=== PATIENT | male | born 1945 | race Caucasian/White ===

== ENCOUNTER 2017-03-04 09:44 | Day surgery (SDC) | payer MEDICARE ==
[~2017-03-04] VITALS: Ht 177.8 cm; Wt 112.4 kg
[2017-03-04] VITALS (21 sets, daily range): BP systolic 81–200; BP diastolic 50–124
[~2017-03-04 09:44] MED LIST: ASPI-974 PO; Metoprolol ER PO; ROSU10TA PO
[2017-03-04] MEDS ORDERED: LORazepam 0.5 MG tablet PO PRN (10:30)
[2017-03-04] MEDS ORDERED: diphenhydrAMINE 25mg capsule PO PRN (10:30)
[2017-03-04] MEDS ORDERED: normal saline 1000ml 1,000 ML IV SCH (10:30)
[2017-03-04] MEDS ORDERED: nitroGLYCERIN 0.4mg SUBLingual tab SL PRN (10:30)
[2017-03-04 10:47] LABS: BASOPHILS % (AUTO) 0.4 % (0-1); EOSINOPHILS # (AUTO) 0.1 X10'3 (0-0.9); EOSINOPHILS % (AUTO) 1.8 % (0-6); HEMATOCRIT 43.8 % (42.0-52.0); HEMOGLOBIN 15.1 g/dl (14.0-17.9); LYMPHOCYTES # (AUTO) 1.1 X10'3 (1.1-4.8); LYMPHOCYTES % (AUTO) 18.3 % (21-51); MEAN CORPUSCULAR HEMOGLOBIN 32.6 PG (27.0-31.0); MEAN CORPUSCULAR HGB CONC 34.5 % (33.0-36.5); MEAN CORPUSCULAR VOLUME 94.6 FL (78-98); MEAN PLATELET VOLUME 7.5 FL (7.4-10.4); MONOCYTES # (AUTO) 0.5 X10'3 (0-0.9); MONOCYTES % (AUTO) 8.7 % (2-12); NEUTROPHILS # (AUTO) 4.3 X10'3 (1.8-7.7); NEUTROPHILS % (AUTO) 70.8 % (42-75); PLATELET COUNT 155 X10'3 (140-440); RED BLOOD COUNT 4.63 X10'6 (4.70-6.10); RED CELL DISTRIBUTION WIDTH 13.6 % (11.5-14.5); WHITE BLOOD COUNT 6.1 X10'3 (4.5-11.0)
[2017-03-04] MEDS ORDERED: LIDOcaine 1%/PF (10mg/ml) 5ml vial ONE (10:48)
[2017-03-04] MEDS ORDERED: iohexol 350 MG/1 ML 200ml bottle ONE (10:49)
[2017-03-04 10:57] LABS: ALBUMIN 3.3 G/DL (3.4-5.0); ANION GAP 9 (8-16); BLOOD UREA NITROGEN 13 MG/DL (7-18); BUN/CREATININE RATIO 16.9 (5.4-32.0); CALCIUM 8.7 MG/DL (8.5-10.1); CHLORIDE 105 MMOL/L (99-107); CREATININE 0.77 MG/DL (0.60-1.10); GLUCOSE 109 MG/DL (70-104); POTASSIUM 3.9 MMOL/L (3.5-5.1); SODIUM 140 MMOL/L (135-145); TOTAL CARBON DIOXIDE 25.8 MMOL/L (24-32); eGFR > 90 ML/MIN
[2017-03-04 10:58] LABS: PARTIAL THROMBOPLASTIN TIME 27 SECONDS (22-32); PROTHROMBIN TIME 10.3 SECONDS (9.0-12.0)
[2017-03-04] MEDS ORDERED: fentaNYL/PF 50MCG/1 ML 2ML syringe ONE (11:00)
[2017-03-04] MEDS ORDERED: midazolam 2 mg/2 ml injection ONE (11:00)
[2017-03-04] MEDS ORDERED: nitroGLYCERIN-Tridil 50MG/D5W 250 ML IV ONE (11:35)
[2017-03-04] MEDS ORDERED: hydrALAZINE 20mg/ml inj. IV ONE (11:49)
[2017-03-04] MEDS ORDERED: HYDROcodone/acetaminophen 5mg/325mg tablet PO PRN (13:00)
[2017-03-04] MEDS ORDERED: ondansetron/PF 4mg/2ml inj IV PRN (13:00)
[2017-03-04] MEDS ORDERED: proCHLORperazine 10 MG/2 ml inj IV PRN (13:00)
[2017-03-04] MEDS ORDERED: HYDROcodone/acetaminophen 10/325mg tab PO PRN (13:00)
[2017-03-04] MEDS ORDERED: OXAZEpam 15mg capsule PO PRN (13:00)
[2017-03-09] MEDS ORDERED: AMLO2.5T2 PO (13:27)
== END 2017-03-04 19:10 | disposition home or self-care (01) ==
LOC: SSTAY O 09:44
PROVIDERS: ATTEND Internal Medicine Cardiovascular Disease
DX: I25.10 Atherosclerotic heart disease of native coronary artery without angina pectoris (principal); Z79.899 Other long term (current) drug therapy
CPT/HCPCS: 36415; 80048; 85025; 85610; 85730; 93454; A6257; C1760; C1769; C1887; J0360; J1644; J2001; J2250; J3010; J3490; J7030; Q9967; 99152; 99153; A4620; A6212

== ENCOUNTER 2017-03-11 05:18 | Inpatient (IN) | payer MEDICARE, OTHER ==
[2017-03-09 13:41] LABS: ABG BASE EXCESS 1.7 mmol/L (-2.0-3.0); ABG HCO3 24.9 mmol/L (22.0-26.0); ABG OXYGEN SATURATION 96.8 % (95-98); ABG PCO2 (T) 35.1 mmHg (35.0-48.0); ABG PH (T) 7.468 (7.350-7.450); ABG PO2 (T) 86.6 mmHg (83-108); ALLEN'S TEST Positive; FCOHb 0.8 % (0.5-1.5); FMetHb 0.1 % (0.3-1.12); FO2Hb 95.9 % (94-100); TOTAL HEMOGLOBIN 16.4 G/dl (14.0-18.0)
[2017-03-09 14:05] LABS: BASOPHILS % (AUTO) 0.4 % (0-1); EOSINOPHILS # (AUTO) 0.1 X10'3 (0-0.9); EOSINOPHILS % (AUTO) 0.9 % (0-6); LYMPHOCYTES # (AUTO) 1.1 X10'3 (1.1-4.8); LYMPHOCYTES % (AUTO) 16.1 % (21-51); MEAN CORPUSCULAR HEMOGLOBIN 32.1 PG (27.0-31.0); MEAN CORPUSCULAR HGB CONC 34.1 % (33.0-36.5); MEAN CORPUSCULAR VOLUME 94.1 FL (78-98); MONOCYTES # (AUTO) 0.7 X10'3 (0-0.9); MONOCYTES % (AUTO) 9.4 % (2-12); NEUTROPHILS # (AUTO) 5.2 X10'3 (1.8-7.7); NEUTROPHILS % (AUTO) 73.2 % (42-75); PRE OP HEMATOCRIT 47.6 % (42.0-52.0); PRE OP HEMOGLOBIN 16.2 g/dL (14.0-17.9); PRE OP PLATELET COUNT 173 X10'3 (140-440); RED BLOOD COUNT 5.05 X10'6 (4.70-6.10); RED CELL DISTRIBUTION WIDTH 13.4 % (11.5-14.5)
[2017-03-09 14:08] LABS: CLARITY,URINE Clear (Clear); COLOR,URINE Yellow (Yellow); GLUCOSE, URINE Negative (Neg); KETONES,URINE Negative (Neg); LEUKOCYTE ESTERASE ,URINE Negative (Neg); NITRITES, URINE Negative (Neg); OCCULT BLOOD,URINE Negative (Neg); PH,URINE 7.5 (4.8-8.0); PROTEIN,URINE 300 mg/dl (Neg)
[2017-03-09 14:11] LABS: HEMOGLOBIN A1C 5.1 % (4.5-6.2); PRE OP PROTIME 10.2 SECONDS (9.0-12.0)
[2017-03-09 14:15] LABS: ALBUMIN 3.8 G/DL (3.4-5.0); ALBUMIN/GLOBULIN RATIO 0.9 (1.1-1.5); ALKALINE PHOSPHATASE 89 IU/L (46-116); BLOOD UREA NITROGEN 11 MG/DL (7-18); BUN/CREATININE RATIO 14.3 (5.4-32.0); CALCIUM 9.2 MG/DL (8.5-10.1); CHLORIDE 102 MMOL/L (99-107); CREATININE 0.77 MG/DL (0.60-1.10); PRE OP ALT 34 U/L (30-65); PRE OP ANION GAP 10 (8-16); PRE OP AST 24 U/L (10-37); PRE OP BILIRUB, TOTAL 0.7 MG/DL (0.0-1.0); PRE OP GLUCOSE 98 MG/DL (70-104); PRE OP POTASSIUM 3.6 MMOL/L (3.4-5.1); PRE OP SODIUM 139 MMOL/L (135-145); TOTAL CARBON DIOXIDE 27.2 MMOL/L (24-32); TOTAL PROTEIN 7.9 G/DL (6.4-8.2); eGFR > 90 ML/MIN
[2017-03-09 14:20] LABS: UA COLLECTION TYPE VOIDED
[2017-03-09 14:23] LABS: BACTERIA,URINE NONE SEEN /HPF (Neg); RBC,URINE 0-2 /HPF (0-2); SQUAMOUS EPITHELIAL CELL,UR NONE SEEN /LPF (FEW); WBC,URINE NONE SEEN /HPF (0-4)
[2017-03-11] VITALS (29 sets, daily range): BP systolic 66–165; BP diastolic 40–115
[~2017-03-11] VITALS: Ht 177.8 cm; Wt 115.0 kg
[~2017-03-11 05:18] MED LIST changes: +AMLO2.5T2 PO; -Metoprolol ER PO; +albuterol 2.5 MG/3 ML nebule NEB ONE; +dextrose 50%-water 50ml dispensing syringe IV PRN; +insulin regular, human 100 UNITS in normal saline 100ml IV soln 99 ML IV SCH; +ringers solution, lacted 1,000 ML IV SCH
[2017-03-11] MEDS ORDERED: dextrose 50%-water 50ml dispensing syringe IV PRN ×2 (05:30→18:30)
[2017-03-11] MEDS ORDERED: vancomycin inj 1,500 MG in normal saline 300ml IV soln IV ONE (05:30)
[2017-03-11] MEDS ORDERED: insulin regular, human 100 UNITS in normal saline 100ml IV soln 99 ML IV SCH ×2 (05:30)
[2017-03-11] MEDS ORDERED: ceFAZolin 2gm in dextrose, iso 100 ML IV ONE (05:30)
[2017-03-11] MEDS ORDERED: famotidine 20mg tablet PO ONE (05:30)
[2017-03-11] MEDS ORDERED: metoprolol tartrate 12.5mg (1/2 tablet) PO ONE (05:30)
[2017-03-11] MEDS ORDERED: LIDOcaine 1% (10mg/ml) 2ml vial ONE (06:05)
[2017-03-11] MEDS: mupirocin 2% ointment 22GM TP SCH ×2 (06:34→20:23)
[2017-03-11] MEDS ORDERED: MIDAZolam 5mg/ml 2ml vial IV ONE (06:50)
[2017-03-11] MEDS ORDERED: sevoflurane 250ml liquid IH ONE (06:58)
[2017-03-11] MEDS ORDERED: ePHEDrine 50MG/ML INJ. ONE (06:58)
[2017-03-11] MEDS ORDERED: DOPamine/D5W 400mg/250ml bag IV ONE (06:58)
[2017-03-11] MEDS ORDERED: SUFENTANIL CITRATE 50 MCG/ML 2ml ampule IV ONE (07:05)
[2017-03-11] MEDS ORDERED: MIDAZolam 1mg/ml 10ml vial ONE (07:05)
[2017-03-11] MEDS ORDERED: NORMAL SALINE IV ONE (07:10)
[2017-03-11] MEDS ORDERED: TRANEXAMIC ACID IV ONE (07:10)
[2017-03-11] MEDS ORDERED: epiNEPHrine 0.1mg/ml 10ml syringe ONE (08:00)
[2017-03-11] MEDS ORDERED: furosemide 40mg/4ml inj ONE (08:00)
[2017-03-11] MEDS ORDERED: phenylephrine 10mg/ml inj IV ONE (08:00)
[2017-03-11] MEDS ORDERED: sodium bicarbonate (8.4%) 1 mEq/ml syringe ONE ×2 (08:00→22:51)
[2017-03-11] MEDS ORDERED: methylPREDNISolone sod. succ. 500mg inj ONE (08:00)
[2017-03-11] MEDS ORDERED: potassium Cl 2 mEq/ml inj IV ONE (08:00)
[2017-03-11] MEDS ORDERED: calcium chloride 100 MG/1 ML inj IV ONE (08:00)
[2017-03-11] MEDS ORDERED: heparin 1,000 units/ml 10ml inj ONE (08:00)
[2017-03-11] MEDS ORDERED: albumin (human) 25% 100 ML IV solution IV ONE (08:00)
[2017-03-11] MEDS ORDERED: LIDOcaine 1% (10mg/ml) 5ml syringe ONE (08:00)
[2017-03-11] MEDS ORDERED: magnesium 1 GM/2 ML inj ONE (08:00)
[2017-03-11 08:20] LABS: ABG BASE EXCESS -0.8 mmol/L (-2.0-3.0); ABG HCO3 23.2 mmol/L (22.0-26.0); ABG OXYGEN SATURATION 96.8 % (95-98); ABG PCO2 36.4 mmHg (35.0-45.0); ABG PH 7.423 (7.350-7.450); ABG PO2 88.8 mmHg (60.0-100.0); CL (ABG) 105 mmol/L (99-107); FCOHb 0.5 % (0.5-1.5); FMetHb 0.4 % (0.3-1.12); FO2Hb 95.9 % (94-100); GLUCOSE (ABG) 128 mg/dl (70-105); K (ABG) 4.1 mmol/L (3.3-5.1); NA (ABG) 133 mmol/L (135-145); TOTAL HEMOGLOBIN 13.6 G/dl (14.0-18.0)
[2017-03-11] MEDS ORDERED: heparin 10,000 units/1 ML INJ ONE (10:00)
[2017-03-11 10:06] LABS: ACT @ 1.70 U 320 SEC (193-297); ACT @ 2.84 U 486 SEC (260-420); BASELINE ACT 160 SEC (101-148)
[2017-03-11] MEDS ORDERED: propofol inj 20 ML IV ONE (10:15)
[2017-03-11] MEDS ORDERED: rocuronium 10mg/ml inj IV ONE ×5 (10:15)
[2017-03-11 10:20] LABS: ABG BASE EXCESS VENOUS -0.6 mmol/L; ABG HCO3 VENOUS 25.9 mmol/L; ABG PCO2 VENOUS 50.1 mmHg; ABG PO2 VENOUS 35.1 mmHg; CL (ABG) 104 mmol/L (99-107); FCOHb VENOUS 0.9 %; FHHb VENOUS 33.8 %; FMetHb VENOUS 0.3 %; GLUCOSE (ABG) 135 mg/dl (70-105); K (ABG) 3.9 mmol/L (3.3-5.1); NA (ABG) 135 mmol/L (135-145); TOTAL HEMOGLOBIN 13.3 G/dl (14.0-18.0)
[2017-03-11] MEDS ORDERED: fentaNYL /PF 50mcg/ml 5ml ampule ONE (10:43)
[2017-03-11 10:46] LABS: ABG HCO3 23.3 mmol/L (22.0-26.0); ABG OXYGEN SATURATION 99.3 % (95-98); ABG PCO2 37.2 mmHg (35.0-45.0); ABG PH 7.414 (7.350-7.450); ABG PO2 549.2 mmHg (60.0-100.0); CL (ABG) 103 mmol/L (99-107); FCOHb 0.3 % (0.5-1.5); FMetHb 0.1 % (0.3-1.12); FO2Hb 98.9 % (94-100); GLUCOSE (ABG) 126 mg/dl (70-105); IONIZED CA (ABG) 0.95 mmol/L (1.03-1.32); K (ABG) 3.4 mmol/L (3.3-5.1); NA (ABG) 132 mmol/L (135-145); TOTAL HEMOGLOBIN 10.7 G/dl (14.0-18.0)
[2017-03-11 10:55] LABS: ABG BASE EXCESS VENOUS -0.4 mmol/L; ABG HCO3 VENOUS 24.9 mmol/L; ABG PCO2 VENOUS 43.6 mmHg; ABG PO2 VENOUS 82.8 mmHg; CL (ABG) 103 mmol/L (99-107); FHHb VENOUS 5.5 %; FMetHb VENOUS 0.1 %; FO2Hb VENOUS 94.4 %; GLUCOSE (ABG) 127 mg/dl (70-105); IONIZED CA (ABG) 0.96 mmol/L (1.03-1.32); K (ABG) 3.2 mmol/L (3.3-5.1); NA (ABG) 136 mmol/L (135-145); TOTAL HEMOGLOBIN 10.4 G/dl (14.0-18.0)
[2017-03-11 11:10] LABS: ABG HCO3 26.2 mmol/L (22.0-26.0); ABG OXYGEN SATURATION 99.3 % (95-98); ABG PCO2 44.2 mmHg (35.0-45.0); ABG PH 7.391 (7.350-7.450); ABG PO2 443.3 mmHg (60.0-100.0); CL (ABG) 104 mmol/L (99-107); FCOHb 0.3 % (0.5-1.5); FMetHb 0.2 % (0.3-1.12); FO2Hb 98.8 % (94-100); GLUCOSE (ABG) 120 mg/dl (70-105); IONIZED CA (ABG) 0.98 mmol/L (1.03-1.32); K (ABG) 3.8 mmol/L (3.3-5.1); NA (ABG) 135 mmol/L (135-145); TOTAL HEMOGLOBIN 10.3 G/dl (14.0-18.0)
[2017-03-11 11:40] LABS: ABG BASE EXCESS -1.6 mmol/L (-2.0-3.0); ABG OXYGEN SATURATION 99.2 % (95-98); ABG PH 7.399 (7.350-7.450); ABG PO2 408.6 mmHg (60.0-100.0); CL (ABG) 106 mmol/L (99-107); FCOHb 0.3 % (0.5-1.5); FMetHb 0.3 % (0.3-1.12); FO2Hb 98.6 % (94-100); GLUCOSE (ABG) 114 mg/dl (70-105); IONIZED CA (ABG) 0.99 mmol/L (1.03-1.32); K (ABG) 4.1 mmol/L (3.3-5.1); NA (ABG) 137 mmol/L (135-145); TOTAL HEMOGLOBIN 10.4 G/dl (14.0-18.0)
[2017-03-11 12:00] LABS: ABG BASE EXCESS -0.7 mmol/L (-2.0-3.0); ABG HCO3 24.2 mmol/L (22.0-26.0); ABG OXYGEN SATURATION 99.2 % (95-98); ABG PCO2 41.1 mmHg (35.0-45.0); ABG PH 7.388 (7.350-7.450); ABG PO2 433.3 mmHg (60.0-100.0); CL (ABG) 105 mmol/L (99-107); FCOHb 0.3 % (0.5-1.5); FMetHb 0.3 % (0.3-1.12); FO2Hb 98.6 % (94-100); GLUCOSE (ABG) 122 mg/dl (70-105); NA (ABG) 135 mmol/L (135-145); TOTAL HEMOGLOBIN 10.8 G/dl (14.0-18.0)
[2017-03-11 12:26] LABS: ABG BASE EXCESS -2.4 mmol/L (-2.0-3.0); ABG HCO3 22.7 mmol/L (22.0-26.0); ABG OXYGEN SATURATION 99.1 % (95-98); ABG PCO2 40.5 mmHg (35.0-45.0); ABG PH 7.367 (7.350-7.450); ABG PO2 430.4 mmHg (60.0-100.0); CL (ABG) 105 mmol/L (99-107); FCOHb 0.3 % (0.5-1.5); FMetHb 0.3 % (0.3-1.12); FO2Hb 98.5 % (94-100); GLUCOSE (ABG) 119 mg/dl (70-105); IONIZED CA (ABG) 0.97 mmol/L (1.03-1.32); K (ABG) 3.7 mmol/L (3.3-5.1); NA (ABG) 135 mmol/L (135-145); TOTAL HEMOGLOBIN 10.2 G/dl (14.0-18.0)
[2017-03-11 13:01] LABS: ABG BASE EXCESS 1.4 mmol/L (-2.0-3.0); ABG HCO3 27.4 mmol/L (22.0-26.0); ABG OXYGEN SATURATION 99.1 % (95-98); ABG PCO2 49.7 mmHg (35.0-45.0); ABG PH 7.359 (7.350-7.450); ABG PO2 439.8 mmHg (60.0-100.0); CL (ABG) 104 mmol/L (99-107); FCOHb 0.3 % (0.5-1.5); FMetHb 0.4 % (0.3-1.12); FO2Hb 98.4 % (94-100); GLUCOSE (ABG) 129 mg/dl (70-105); IONIZED CA (ABG) 0.97 mmol/L (1.03-1.32); NA (ABG) 135 mmol/L (135-145); TOTAL HEMOGLOBIN 10.1 G/dl (14.0-18.0)
[2017-03-11 13:46] LABS: ABG BASE EXCESS -0.2 mmol/L (-2.0-3.0); ABG HCO3 24.7 mmol/L (22.0-26.0); ABG OXYGEN SATURATION 99.3 % (95-98); ABG PCO2 41.4 mmHg (35.0-45.0); ABG PH 7.394 (7.350-7.450); ABG PO2 381.6 mmHg (60.0-100.0); CL (ABG) 106 mmol/L (99-107); FCOHb 0.2 % (0.5-1.5); FMetHb 0.3 % (0.3-1.12); FO2Hb 98.8 % (94-100); GLUCOSE (ABG) 136 mg/dl (70-105); IONIZED CA (ABG) 0.96 mmol/L (1.03-1.32); NA (ABG) 133 mmol/L (135-145); TOTAL HEMOGLOBIN 11.5 G/dl (14.0-18.0)
[2017-03-11 14:00] LABS: ABG BASE EXCESS VENOUS -0.4 mmol/L; ABG HCO3 VENOUS 24.9 mmol/L; ABG PCO2 VENOUS 43.8 mmHg; ABG PO2 VENOUS 56.4 mmHg; CL (ABG) 106 mmol/L (99-107); FCOHb VENOUS 0.3 %; FHHb VENOUS 10.9 %; FMetHb VENOUS 0.4 %; FO2Hb VENOUS 88.4 %; GLUCOSE (ABG) 130 mg/dl (70-105); IONIZED CA (ABG) 0.94 mmol/L (1.03-1.32); NA (ABG) 136 mmol/L (135-145); TOTAL HEMOGLOBIN 10.8 G/dl (14.0-18.0)
[2017-03-11] MEDS ORDERED: ceFAZolin 1000mg inj ONE ×2 (14:12)
[2017-03-11 14:15] LABS: ABG BASE EXCESS -0.6 mmol/L (-2.0-3.0); ABG HCO3 24.6 mmol/L (22.0-26.0); ABG PCO2 43.2 mmHg (35.0-45.0); ABG PH 7.374 (7.350-7.450); ABG PO2 382.7 mmHg (60.0-100.0); CL (ABG) 105 mmol/L (99-107); FCOHb 0.3 % (0.5-1.5); FMetHb 0.3 % (0.3-1.12); FO2Hb 98.4 % (94-100); GLUCOSE (ABG) 131 mg/dl (70-105); IONIZED CA (ABG) 0.89 mmol/L (1.03-1.32); K (ABG) 4.1 mmol/L (3.3-5.1); NA (ABG) 135 mmol/L (135-145)
[2017-03-11 14:50] LABS: ABG BASE EXCESS -0.5 mmol/L (-2.0-3.0); ABG HCO3 23.7 mmol/L (22.0-26.0); ABG OXYGEN SATURATION 98.9 % (95-98); ABG PCO2 37.1 mmHg (35.0-45.0); ABG PH 7.423 (7.350-7.450); ABG PO2 290.2 mmHg (60.0-100.0); CL (ABG) 105 mmol/L (99-107); FCOHb 0.3 % (0.5-1.5); FMetHb 0.3 % (0.3-1.12); FO2Hb 98.3 % (94-100); GLUCOSE (ABG) 134 mg/dl (70-105); IONIZED CA (ABG) 1.12 mmol/L (1.03-1.32); K (ABG) 4.7 mmol/L (3.3-5.1); NA (ABG) 137 mmol/L (135-145); TOTAL HEMOGLOBIN 9.6 G/dl (14.0-18.0)
[2017-03-11 15:10] LABS: ABG BASE EXCESS 0.3 mmol/L (-2.0-3.0); ABG HCO3 24.6 mmol/L (22.0-26.0); ABG OXYGEN SATURATION 99.1 % (95-98); ABG PCO2 38.3 mmHg (35.0-45.0); ABG PH 7.425 (7.350-7.450); ABG PO2 301.9 mmHg (60.0-100.0); CL (ABG) 103 mmol/L (99-107); FCOHb 0.1 % (0.5-1.5); FMetHb 0.3 % (0.3-1.12); FO2Hb 98.7 % (94-100); GLUCOSE (ABG) 146 mg/dl (70-105); IONIZED CA (ABG) 0.95 mmol/L (1.03-1.32); K (ABG) 4.8 mmol/L (3.3-5.1); NA (ABG) 135 mmol/L (135-145); TOTAL HEMOGLOBIN 10.5 G/dl (14.0-18.0)
[2017-03-11] MEDS ORDERED: midazolam 2 mg/2 ml injection ONE (15:37)
[2017-03-11 16:01] LABS: ABG BASE EXCESS -5.7 mmol/L (-2.0-3.0); ABG HCO3 19.8 mmol/L (22.0-26.0); ABG OXYGEN SATURATION 99.3 % (95-98); ABG PCO2 39.2 mmHg (35.0-45.0); ABG PH 7.322 (7.350-7.450); ABG PO2 485.1 mmHg (60.0-100.0); CL (ABG) 107 mmol/L (99-107); FCOHb 0.1 % (0.5-1.5); FMetHb 0.6 % (0.3-1.12); FO2Hb 98.6 % (94-100); GLUCOSE (ABG) 282 mg/dl (70-105); IONIZED CA (ABG) 1.74 mmol/L (1.03-1.32); K (ABG) 4.7 mmol/L (3.3-5.1); NA (ABG) 134 mmol/L (135-145)
[2017-03-11 16:36] LABS: ABG BASE EXCESS -5.3 mmol/L (-2.0-3.0); ABG OXYGEN SATURATION 98.7 % (95-98); ABG PH 7.339 (7.350-7.450); ABG PO2 236.3 mmHg (60.0-100.0); CL (ABG) 105 mmol/L (99-107); FCOHb 0.3 % (0.5-1.5); FMetHb 0.5 % (0.3-1.12); FO2Hb 97.9 % (94-100); GLUCOSE (ABG) 292 mg/dl (70-105); IONIZED CA (ABG) 1.03 mmol/L (1.03-1.32); K (ABG) 4.6 mmol/L (3.3-5.1); NA (ABG) 135 mmol/L (135-145); TOTAL HEMOGLOBIN 10.9 G/dl (14.0-18.0)
[2017-03-11 17:05] LABS: ABG BASE EXCESS -6.8 mmol/L (-2.0-3.0); ABG HCO3 18.9 mmol/L (22.0-26.0); ABG OXYGEN SATURATION 95.7 % (95-98); ABG PCO2 38.6 mmHg (35.0-45.0); ABG PH 7.308 (7.350-7.450); ABG PO2 86.9 mmHg (60.0-100.0); CL (ABG) 106 mmol/L (99-107); FCOHb 0.5 % (0.5-1.5); FMetHb 0.5 % (0.3-1.12); FO2Hb 94.7 % (94-100); GLUCOSE (ABG) 346 mg/dl (70-105); IONIZED CA (ABG) 0.99 mmol/L (1.03-1.32); K (ABG) 4.4 mmol/L (3.3-5.1); NA (ABG) 137 mmol/L (135-145); TOTAL HEMOGLOBIN 13.9 G/dl (14.0-18.0)
[2017-03-11 17:51] LABS: ABG BASE EXCESS -7.8 mmol/L (-2.0-3.0); ABG HCO3 19.1 mmol/L (22.0-26.0); ABG OXYGEN SATURATION 96.7 % (95-98); ABG PH 7.255 (7.350-7.450); ABG PO2 108.1 mmHg (60.0-100.0); CL (ABG) 109 mmol/L (99-107); FCOHb 0.1 % (0.5-1.5); FMetHb 0.8 % (0.3-1.12); FO2Hb 95.8 % (94-100); GLUCOSE (ABG) 263 mg/dl (70-105); IONIZED CA (ABG) 0.96 mmol/L (1.03-1.32); K (ABG) 3.5 mmol/L (3.3-5.1); NA (ABG) 137 mmol/L (135-145); TOTAL HEMOGLOBIN 12.7 G/dl (14.0-18.0)
[2017-03-11 18:03] LABS: BASOPHILS % (AUTO) 0.1 % (0-1); EOSINOPHILS # (AUTO) 0.2 X10'3 (0-0.9); EOSINOPHILS % (AUTO) 1.6 % (0-6); HEMATOCRIT 33.9 % (42.0-52.0); HEMOGLOBIN 11.6 g/dl (14.0-17.9); LYMPHOCYTES # (AUTO) 0.9 X10'3 (1.1-4.8); LYMPHOCYTES % (AUTO) 7.6 % (21-51); MEAN CORPUSCULAR HEMOGLOBIN 31.8 PG (27.0-31.0); MEAN CORPUSCULAR HGB CONC 34.3 % (33.0-36.5); MEAN CORPUSCULAR VOLUME 92.6 FL (78-98); MEAN PLATELET VOLUME 7.9 FL (7.4-10.4); MONOCYTES # (AUTO) 0.7 X10'3 (0-0.9); MONOCYTES % (AUTO) 5.4 % (2-12); NEUTROPHILS # (AUTO) 10.3 X10'3 (1.8-7.7); NEUTROPHILS % (AUTO) 85.3 % (42-75); RED BLOOD COUNT 3.66 X10'6 (4.70-6.10); RED CELL DISTRIBUTION WIDTH 15.2 % (11.5-14.5)
[2017-03-11 18:14] LABS: PLATELET COUNT 33 X10'3 (140-440)
[2017-03-11] MEDS ORDERED: nitroGLYCERIN-Tridil 50MG/D5W 250 ML IV PRN (18:27)
[2017-03-11] MEDS ORDERED: DOPamine 400mg/D5W 250ml 250 ML IV PRN (18:27)
[2017-03-11] MEDS ORDERED: sodium chloride 0.45% 1,000 ML IV SCH (18:27)
[2017-03-11] MEDS ORDERED: propofol 1000mg/100ml bottle 100 ML IV PRN (18:27)
[2017-03-11] MEDS ORDERED: niCARDipine/sod cl 20mg/200ml 200 ML IV PRN (18:27)
[2017-03-11] MEDS ORDERED: acetaminophen 325mg tablet PO PRN (18:30)
[2017-03-11] MEDS ORDERED: magnesium hydroxide 30ml (MOM) UD suspension PO PRN (18:30)
[2017-03-11] MEDS ORDERED: HYDROcodone/acetaminophen 10/325mg tab PO PRN ×2 (18:30)
[2017-03-11] MEDS ORDERED: epiNEPHrine inj 5 MG, calcium chloride inj. 1,000 MG in normal saline 250ml IV soln 250 ML IV SCH (18:30)
[2017-03-11] MEDS ORDERED: sodium phosphate inj. 15 MMOL in dextrose 5%-water 150 ML IV PRN (18:30)
[2017-03-11] MEDS ORDERED: insulin regular, human inj. 100 UNITS in normal saline 100ml IV soln 100 ML IV SCH ×2 (18:30)
[2017-03-11] MEDS ORDERED: albumin (Human) 5% 250ml 250 ML IV PRN (18:30)
[2017-03-11] MEDS ORDERED: magnesium 4gm in 100ml NS 100 ML IV PRN ×2 (18:30→23:50)
[2017-03-11] MEDS ORDERED: magnesium 2GM in 50ml NS 50 ML IV PRN (18:30)
[2017-03-11] MEDS ORDERED: potassium Cl 20mEq/100mL bag 100 ML IV PRN ×4 (18:30→23:50)
[2017-03-11] MEDS ORDERED: ondansetron/PF 4mg/2ml inj IV PRN (18:30)
[2017-03-11] MEDS ORDERED: metoclopramide 5 mg/ml inj IV PRN (18:30)
[2017-03-11] MEDS ORDERED: Neutra Phos packet PO PRN (18:30)
[2017-03-11] MEDS ORDERED: normal saline 250ml IV soln 250 ML IV PRN (18:30)
[2017-03-11] MEDS ORDERED: sodium phosphate inj. 30 MMOL in dextrose 5%-water 250 ML IV PRN (18:30)
[2017-03-11] MEDS ORDERED: HUMAN PROTHROMBIN COMPLX(PCC) 500 UNIT KIT IV ONE ×2 (18:55)
[2017-03-11] MEDS ORDERED: propofol 1000mg/100ml bottle 100 ML IV ONE (18:57)
[2017-03-11 19:13] LABS: BASOPHILS % (AUTO) 0.1 % (0-1); EOSINOPHILS % (AUTO) 0 % (0-6); HEMATOCRIT 30.7 % (42.0-52.0); HEMOGLOBIN 10.5 g/dl (14.0-17.9); LYMPHOCYTES % (AUTO) 9.3 % (21-51); MEAN CORPUSCULAR HEMOGLOBIN 31.9 PG (27.0-31.0); MEAN CORPUSCULAR HGB CONC 34.2 % (33.0-36.5); MEAN CORPUSCULAR VOLUME 93.2 FL (78-98); MEAN PLATELET VOLUME 8.6 FL (7.4-10.4); MONOCYTES # (AUTO) 0.6 X10'3 (0-0.9); MONOCYTES % (AUTO) 5.7 % (2-12); NEUTROPHILS # (AUTO) 9.5 X10'3 (1.8-7.7); NEUTROPHILS % (AUTO) 84.9 % (42-75); RED BLOOD COUNT 3.29 X10'6 (4.70-6.10); RED CELL DISTRIBUTION WIDTH 15.5 % (11.5-14.5); WHITE BLOOD COUNT 11.1 X10'3 (4.5-11.0)
[2017-03-11] MEDS ORDERED: albumin (Human) 5% 250ml 250 ML IV ONE ×3 (19:17→19:18)
[2017-03-11 19:27] LABS: PLATELET COUNT 22 X10'3 (140-440)
[2017-03-11 19:34] LABS: ALANINE AMINOTRANSFERASE 34 U/L (12-78); ALBUMIN 1.3 G/DL (3.4-5.0); ALBUMIN/GLOBULIN RATIO 1.2 (1.1-1.5); ALKALINE PHOSPHATASE 16 IU/L (46-116); ANION GAP 11 (8-16); ASPARTATE AMINO TRANSFERASE 111 U/L (10-37); BILIRUBIN,TOTAL 1.7 MG/DL (0.1-1.0); BLOOD UREA NITROGEN 16 MG/DL (7-18); BUN/CREATININE RATIO 13.3 (5.4-32.0); CALCIUM 7.3 MG/DL (8.5-10.1); CHLORIDE 114 MMOL/L (99-107); GLUCOSE 209 MG/DL (70-104); MAGNESIUM 2.2 MG/DL (1.5-2.4); PHOSPHORUS 4.6 MG/DL (2.3-4.5); POTASSIUM 4.1 MMOL/L (3.5-5.1); SODIUM 147 MMOL/L (135-145); TOTAL CARBON DIOXIDE 21.6 MMOL/L (24-32); TOTAL PROTEIN 2.4 G/DL (6.4-8.2); eGFR 60 ML/MIN
[2017-03-11 19:59] LABS: INR 2.1 INR; PROTHROMBIN TIME 20.9 SECONDS (9.0-12.0)
[2017-03-11] MEDS ORDERED: mupirocin 2% ointment 22GM NS SCH (20:00)
[2017-03-11] MEDS ORDERED: docusate sod 100mg capsule PO SCH (20:00)
[2017-03-11] MEDS ORDERED: vancomycin/NS 1 GM ADD-VANTAGE 250 ML IV SCH (20:00)
[2017-03-11] MEDS ORDERED: albumin (Human) 5% 250 ML IV solution IV STA (22:17)
[2017-03-11] MEDS ORDERED: DOBUTamine-DoBUTrex 500mg/D5W 250 ML IV SCH (22:20)
[2017-03-11 22:30] LABS: ABG BASE EXCESS -21.4 mmol/L (-2.0-3.0); ABG HCO3 9.9 mmol/L (22.0-26.0); ABG OXYGEN SATURATION 86.1 % (95-98); ABG PH (T) 6.977 (7.350-7.450); ABG PO2 (T) 66.1 mmHg (83-108); FCOHb 0.3 % (0.5-1.5); FMetHb 0.3 % (0.3-1.12); FO2Hb 85.6 % (94-100); MINUTE VOLUME 8 L/min; PATIENT TEMPERATURE 36.4; PEEP 5 cm H2O; RESPIRATORY RATE 12 b/min; RESPIRATORY RATE (OBSERVED) 12 b/min; TIDAL VOLUME 600 mL; TOTAL HEMOGLOBIN 13.1 G/dl (14.0-18.0)
[2017-03-11] MEDS ORDERED: sodium bicarbonate (8.4%) 1 mEq/ml syringe IV ONE ×2 (22:50)
[2017-03-11] MEDS ORDERED: sodium bicarbonate 1 MEQ/1 ml inj ONE (23:12)
[2017-03-11] MEDS ORDERED: sodium bicarbonate (8.4%) inj. 150 MEQ in sodium chloride 0.45% 850 ML IV SCH (23:13)
[2017-03-11] MEDS ORDERED: vasopressin inj. 60 UNIT in normal saline 100ml IV soln 97 ML IV SCH (23:20)
[2017-03-11] MEDS ORDERED: vasoPRESSIN 20 units/ml inj. ONE (23:20)
[2017-03-11 23:38] LABS: BASOPHILS % (AUTO) 0.2 % (0-1); EOSINOPHILS # (AUTO) 0.1 X10'3 (0-0.9); EOSINOPHILS % (AUTO) 1.1 % (0-6); HEMATOCRIT 24.3 % (42.0-52.0); HEMOGLOBIN 8.2 g/dl (14.0-17.9); LYMPHOCYTES # (AUTO) 1.5 X10'3 (1.1-4.8); LYMPHOCYTES % (AUTO) 14.4 % (21-51); MEAN CORPUSCULAR HEMOGLOBIN 29.9 PG (27.0-31.0); MEAN CORPUSCULAR HGB CONC 33.7 % (33.0-36.5); MEAN CORPUSCULAR VOLUME 88.9 FL (78-98); MEAN PLATELET VOLUME 7.6 FL (7.4-10.4); MONOCYTES # (AUTO) 0.3 X10'3 (0-0.9); MONOCYTES % (AUTO) 3.2 % (2-12); NEUTROPHILS # (AUTO) 8.5 X10'3 (1.8-7.7); NEUTROPHILS % (AUTO) 81.1 % (42-75); PLATELET COUNT 75 X10'3 (140-440); RED BLOOD COUNT 2.73 X10'6 (4.70-6.10); RED CELL DISTRIBUTION WIDTH 18.3 % (11.5-14.5); WHITE BLOOD COUNT 10.5 X10'3 (4.5-11.0)
[2017-03-11] MEDS ORDERED: calcium chloride inj. 10,000 MG in normal saline 500ml IV soln 400 ML IV PRN (23:50)
[2017-03-11] MEDS ORDERED: sodium phosphate inj. 30 MMOL in normal saline 250ml IV soln 250 ML IV PRN (23:50)
[2017-03-11 23:56] LABS: ALANINE AMINOTRANSFERASE 482 U/L (12-78); ALBUMIN 2.1 G/DL (3.4-5.0); ALBUMIN/GLOBULIN RATIO 1.5 (1.1-1.5); ALKALINE PHOSPHATASE 46 IU/L (46-116); ANION GAP 17 (8-16); ASPARTATE AMINO TRANSFERASE 688 U/L (10-37); BILIRUBIN,TOTAL 2.1 MG/DL (0.1-1.0); BLOOD UREA NITROGEN 18 MG/DL (7-18); CALCIUM 7.4 MG/DL (8.5-10.1); CHLORIDE 112 MMOL/L (99-107); GLUCOSE 179 MG/DL (70-104); MAGNESIUM 3.3 MG/DL (1.5-2.4); POTASSIUM 4.3 MMOL/L (3.5-5.1); SODIUM 152 MMOL/L (135-145); TOTAL CARBON DIOXIDE 22.7 MMOL/L (24-32); TOTAL PROTEIN 3.5 G/DL (6.4-8.2); eGFR 33 ML/MIN
[2017-03-12] VITALS (9 sets, daily range): BP systolic 7–90; BP diastolic 20–50
[2017-03-12] MEDS ORDERED: ceFAZolin 2gm in dextrose, iso 100 ML IV SCH
[2017-03-12 00:10] LABS: INR 1.8 INR; PROTHROMBIN TIME 18.5 SECONDS (9.0-12.0)
[2017-03-12 00:43] LABS: PARTIAL THROMBOPLASTIN TIME 153 SECONDS (22-32)
[2017-03-12 01:06] LABS: OXYGEN SATURATION (MIXED VEN) 44.7 % (60-80); PO2 MIXED VENOUS (TEMP COR) 26.8 mmHg (35-46)
[2017-03-12 01:06] LABS: ABG BASE EXCESS -10.9 mmol/L (-2.0-3.0); ABG HCO3 16.8 mmol/L (22.0-26.0); ABG OXYGEN SATURATION 86.7 % (95-98); ABG PCO2 (T) 43.4 mmHg (35.0-48.0); ABG PH (T) 7.199 (7.350-7.450); ABG PO2 (T) 57.8 mmHg (83-108); FCOHb 0.3 % (0.5-1.5); FMetHb 0.6 % (0.3-1.12); FO2Hb 85.9 % (94-100); MINUTE VOLUME 12 L/min; PATIENT TEMPERATURE 35.9; PEEP 5 cm H2O; RESPIRATORY RATE 24 b/min; RESPIRATORY RATE (OBSERVED) 24 b/min; TIDAL VOLUME 450 mL; TOTAL HEMOGLOBIN 8.5 G/dl (14.0-18.0)
[2017-03-12] MEDS: citrate dextrose 1000ml IV sol 1,000 ML IV PRN ×2 (01:25→05:48)
[2017-03-12] MEDS ORDERED: sodium bicarbonate 1 MEQ/1 ml inj ONE ×2 (01:25→01:26)
[2017-03-12] MEDS: Duosol 4k/NO Calcium 5,000 ML HE SCH ×4 (01:32→05:34)
[2017-03-12] MEDS: NORepinephrine 8mg/ 250ml NS 250 ML IV PRN ×2 (02:02→06:50)
[2017-03-12 03:32] LABS: BASOPHILS % (AUTO) 0.1 % (0-1); EOSINOPHILS % (AUTO) 0 % (0-6); HEMATOCRIT 25.1 % (42.0-52.0); HEMOGLOBIN 8.6 g/dl (14.0-17.9); LYMPHOCYTES # (AUTO) 0.7 X10'3 (1.1-4.8); MEAN CORPUSCULAR HEMOGLOBIN 30.4 PG (27.0-31.0); MEAN CORPUSCULAR HGB CONC 34.1 % (33.0-36.5); MEAN CORPUSCULAR VOLUME 89.2 FL (78-98); MEAN PLATELET VOLUME 7.4 FL (7.4-10.4); MONOCYTES # (AUTO) 0.4 X10'3 (0-0.9); NEUTROPHILS # (AUTO) 6.2 X10'3 (1.8-7.7); NEUTROPHILS % (AUTO) 83.9 % (42-75); RED BLOOD COUNT 2.81 X10'6 (4.70-6.10); RED CELL DISTRIBUTION WIDTH 18.4 % (11.5-14.5); WHITE BLOOD COUNT 7.4 X10'3 (4.5-11.0)
[2017-03-12 03:45] LABS: INR 2.3 INR; PARTIAL THROMBOPLASTIN TIME 67 SECONDS (22-32); PROTHROMBIN TIME 22.7 SECONDS (9.0-12.0)
[2017-03-12 03:50] LABS: ABG BASE EXCESS -11.8 mmol/L (-2.0-3.0); ABG HCO3 14.5 mmol/L (22.0-26.0); ABG OXYGEN SATURATION 97.6 % (95-98); ABG PCO2 (T) 31.6 mmHg (35.0-48.0); ABG PO2 (T) 120.7 mmHg (83-108); FCOHb 0.3 % (0.5-1.5); FMetHb 0.1 % (0.3-1.12); FO2Hb 97.2 % (94-100); MINUTE VOLUME 12 L/min; PATIENT TEMPERATURE 35.4; PEEP 5 cm H2O; RESPIRATORY RATE 24 b/min; RESPIRATORY RATE (OBSERVED) 24 b/min; TIDAL VOLUME 450 mL; TOTAL HEMOGLOBIN 9.6 G/dl (14.0-18.0)
[2017-03-12 03:55] LABS: ALANINE AMINOTRANSFERASE 3000 U/L (12-78); ALBUMIN 2.3 G/DL (3.4-5.0); ALBUMIN/GLOBULIN RATIO 1.4 (1.1-1.5); ALKALINE PHOSPHATASE 56 IU/L (46-116); ANION GAP 20 (8-16); ASPARTATE AMINO TRANSFERASE 924 U/L (10-37); BILIRUBIN,TOTAL 2.6 MG/DL (0.1-1.0); BLOOD UREA NITROGEN 18 MG/DL (7-18); BUN/CREATININE RATIO 8.6 (5.4-32.0); CALCIUM 7.5 MG/DL (8.5-10.1); CHLORIDE 112 MMOL/L (99-107); GLUCOSE 170 MG/DL (70-104); MAGNESIUM 2.8 MG/DL (1.5-2.4); PHOSPHORUS 5.5 MG/DL (2.3-4.5); POTASSIUM 4.2 MMOL/L (3.5-5.1); SODIUM 149 MMOL/L (135-145); TOTAL CARBON DIOXIDE 17.3 MMOL/L (24-32); TOTAL PROTEIN 3.9 G/DL (6.4-8.2); eGFR 31 ML/MIN
[2017-03-12 04:03] LABS: PLATELET COUNT 40 X10'3 (140-440)
[2017-03-12] MEDS: calcium chloride inj. 1,000 MG in normal saline 100ml IV soln 100 ML IV PRN ×2 (04:05→06:22)
[2017-03-12 05:14] LABS: NUCLEATED RED BLOOD CELLS 3 /100WBC (0-0); TOTAL CELLS COUNTED 100
[2017-03-12 05:15] LABS: PLATELET ESTIMATE DECREASED
[2017-03-12 05:16] LABS: ANISOCYTOSIS 2+; POLYCHROMASIA 1+; TOXIC GRANULATION 1+
[2017-03-12 05:17] LABS: POIKILOCYTOSIS FEW; TOXIC VACUOLATION FEW
[2017-03-12 05:36] LABS: BASOPHILS % (AUTO) 0 % (0-1); EOSINOPHILS # (AUTO) 0.1 X10'3 (0-0.9); EOSINOPHILS % (AUTO) 0.9 % (0-6); HEMATOCRIT 24.2 % (42.0-52.0); HEMOGLOBIN 8.1 g/dl (14.0-17.9); LYMPHOCYTES # (AUTO) 0.8 X10'3 (1.1-4.8); LYMPHOCYTES % (AUTO) 7.9 % (21-51); MEAN CORPUSCULAR HGB CONC 33.6 % (33.0-36.5); MEAN CORPUSCULAR VOLUME 89.1 FL (78-98); MEAN PLATELET VOLUME 7.8 FL (7.4-10.4); MONOCYTES # (AUTO) 0.8 X10'3 (0-0.9); MONOCYTES % (AUTO) 7.5 % (2-12); NEUTROPHILS # (AUTO) 8.8 X10'3 (1.8-7.7); NEUTROPHILS % (AUTO) 83.7 % (42-75); PLATELET COUNT 140 X10'3 (140-440); RED BLOOD COUNT 2.72 X10'6 (4.70-6.10); RED CELL DISTRIBUTION WIDTH 18.9 % (11.5-14.5); WHITE BLOOD COUNT 10.5 X10'3 (4.5-11.0)
[2017-03-12 05:50] LABS: ALBUMIN 2.5 G/DL (3.4-5.0); ANION GAP 22 (8-16); BLOOD UREA NITROGEN 17 MG/DL (7-18); BUN/CREATININE RATIO 8.1 (5.4-32.0); CHLORIDE 110 MMOL/L (99-107); GLUCOSE 145 MG/DL (70-104); MAGNESIUM 2.8 MG/DL (1.5-2.4); PHOSPHORUS 5.8 MG/DL (2.3-4.5); POTASSIUM 4.4 MMOL/L (3.5-5.1); SODIUM 148 MMOL/L (135-145); TOTAL CARBON DIOXIDE 15.7 MMOL/L (24-32); eGFR 31 ML/MIN
[2017-03-12] MEDS ORDERED: insulin R INFUSION 1 ML IV ONE (06:38)
[2017-03-12] MEDS ORDERED: sodium bicarbonate (8.4%) 1 mEq/ml syringe ONE (07:00)
[2017-03-12] MEDS ORDERED: epiNEPHrine 1 mg/ml inj ONE (07:00)
[2017-03-12] MEDS ORDERED: pantoprazole 40mg Tablet.DR PO SCH (07:30)
[2017-03-12 07:31] LABS: ACTIVATED CLOTTING TIME > 999 SEC (101-148)
[2017-03-12 07:33] LABS: ACTIVATED CLOTTING TIME > 999 SEC (101-148)
[2017-03-12 07:35] LABS: ACTIVATED CLOTTING TIME > 999 SEC (101-148)
[2017-03-12 07:36] LABS: ACTIVATED CLOTTING TIME > 999 SEC (101-148)
[2017-03-12 07:37] LABS: ACTIVATED CLOTTING TIME > 999 SEC (101-148)
[2017-03-12 07:37] LABS: ACTIVATED CLOTTING TIME > 999 SEC (101-148)
[2017-03-12 07:38] LABS: ACTIVATED CLOTTING TIME > 999 SEC (101-148)
[2017-03-12 07:39] LABS: ACTIVATED CLOTTING TIME > 999 SEC (101-148)
[2017-03-12 07:47] LABS: ACTIVATED CLOTTING TIME > 999 SEC (101-148)
[2017-03-12 07:49] LABS: BANDS% (MANUAL) 5 % (0-10); LYMPHOCYTES % (MANUAL) 14 % (21-51); MONOCYTES % (MANUAL) 6 % (2-12); NEUTROPHILS % (MANUAL) 75 % (42-75); NUCLEATED RED BLOOD CELLS 1 /100WBC (0-0); PLATELET ESTIMATE NORMAL; SMUDGE CELLS FEW; TOTAL CELLS COUNTED 100
[2017-03-12 07:50] LABS: ANISOCYTOSIS 2+
[2017-03-12 07:56] LABS: ABG BASE EXCESS -18.1 mmol/L (-2.0-3.0); ABG HCO3 9.9 mmol/L (22.0-26.0); ABG OXYGEN SATURATION 83.9 % (95-98); ABG PCO2 31.6 mmHg (35.0-45.0); ABG PO2 54.5 mmHg (60.0-100.0); CL (ABG) 111 mmol/L (99-107); FCOHb 0.4 % (0.5-1.5); FMetHb 0.6 % (0.3-1.12); FO2Hb 83.1 % (94-100); GLUCOSE (ABG) 103 mg/dl (70-105); IONIZED CA (ABG) 1.14 mmol/L (1.03-1.32); K (ABG) 5.4 mmol/L (3.3-5.1); NA (ABG) 144 mmol/L (135-145); TOTAL HEMOGLOBIN 7.6 G/dl (14.0-18.0)
[2017-03-12] MEDS ORDERED: atorvastatin 10mg tablet PO SCH (08:00)
[2017-03-12] MEDS ORDERED: metoprolol tartrate 12.5mg (1/2 tablet) PO SCH (08:00)
[2017-03-12] MEDS ORDERED: aspirin 325mg tablet, delayed-release (Ecotrin) PO SCH (08:00)
[2017-03-12] MEDS ORDERED: insulin Lispro (HumaLOG) vial - multi-dose SQ SCH (09:00)
[2017-03-12] MEDS ORDERED: HUMAN PROTHROMBIN COMPLX(PCC) 500 UNIT KIT IV ONE (09:58)
[2017-03-12 11:00] LABS: ABG PH 7.113 (7.350-7.450)
== END 2017-03-12 08:00 | disposition expired | DRG 219 ==
LOC: PAS IN 05:18 → EDSTATUS 07:30 → CICU 2S 08:25
PROVIDERS: ADMIT Thoracic Surgery (Cardiothoracic Vascular Surgery); ATTEND Thoracic Surgery (Cardiothoracic Vascular Surgery)
PROC: 02RF08Z Replacement of Aortic Valve with Zooplastic Tissue, Open Approach (ICD-10-PCS; 2017-03-11)
PROC: 06BP4ZZ Excision of Right Saphenous Vein, Percutaneous Endoscopic Approach (ICD-10-PCS; 2017-03-11)
PROC: 30233L1 Transfusion of Nonautologous Fresh Plasma into Peripheral Vein, Percutaneous Approach (ICD-10-PCS; 2017-03-11)
PROC: 30233N1 Transfusion of Nonautologous Red Blood Cells into Peripheral Vein, Percutaneous Approach (ICD-10-PCS; 2017-03-11)
PROC: 30233R1 Transfusion of Nonautologous Platelets into Peripheral Vein, Percutaneous Approach (ICD-10-PCS; 2017-03-11)
PROC: 30233M1 Transfusion of Nonautologous Plasma Cryoprecipitate into Peripheral Vein, Percutaneous Approach (ICD-10-PCS; 2017-03-11)
PROC: 30233K1 Transfusion of Nonautologous Frozen Plasma into Peripheral Vein, Percutaneous Approach (ICD-10-PCS; 2017-03-11)
PROC: B24BZZ4 Ultrasonography of Heart with Aorta, Transesophageal (ICD-10-PCS; 2017-03-11)
PROC: 5A1221Z Performance of Cardiac Output, Continuous (ICD-10-PCS; 2017-03-11)
PROC: 02HV33Z Insertion of Infusion Device into Superior Vena Cava, Percutaneous Approach (ICD-10-PCS; 2017-03-11)
PROC: B548ZZA Ultrasonography of Superior Vena Cava, Guidance (ICD-10-PCS; 2017-03-11)
PROC: 02RX0JZ Replacement of Thoracic Aorta, Ascending/Arch with Synthetic Substitute, Open Approach (ICD-10-PCS; 2017-03-11)
PROC: 02HQ32Z Insertion of Monitoring Device into Right Pulmonary Artery, Percutaneous Approach (ICD-10-PCS; 2017-03-11)
PROC: 4A133B3 Monitoring of Arterial Pressure, Pulmonary, Percutaneous Approach (ICD-10-PCS; 2017-03-11)
PROC: 4A1239Z Monitoring of Cardiac Output, Percutaneous Approach (ICD-10-PCS; 2017-03-11)
PROC: 021009W Bypass Coronary Artery, One Artery from Aorta with Autologous Venous Tissue, Open Approach (ICD-10-PCS; principal; 2017-03-11 06:58)
PROC: 0WJC0ZZ Inspection of Mediastinum, Open Approach (ICD-10-PCS; 2017-03-12)
PROC: 5A1D90Z Performance of Urinary Filtration, Continuous, Greater than 18 hours Per Day (ICD-10-PCS; 2017-03-12)
PROC: 06HN33Z Insertion of Infusion Device into Left Femoral Vein, Percutaneous Approach (ICD-10-PCS; 2017-03-12)
PROC: B54CZZA Ultrasonography of Left Lower Extremity Veins, Guidance (ICD-10-PCS; 2017-03-12)
DX: T82.857A Stenosis of other cardiac prosthetic devices, implants and grafts, initial encounter (principal); N17.0 Acute kidney failure with tubular necrosis; R57.0 Cardiogenic shock; E87.4 Mixed disorder of acid-base balance; I71.2 Thoracic aortic aneurysm, without rupture; D68.8 Other specified coagulation defects; E87.70 Fluid overload, unspecified; D69.6 Thrombocytopenia, unspecified; I35.0 Nonrheumatic aortic (valve) stenosis; I10 Essential (primary) hypertension; E78.5 Hyperlipidemia, unspecified; Y83.1 Surgical operation with implant of artificial internal device as the cause of abnormal reaction of the patient, or of later complication, without mention of misadventure at the time of the procedure; Z95.3 Presence of xenogenic heart valve; Z79.899 Other long term (current) drug therapy; Z79.82 Long term (current) use of aspirin; Z87.891 Personal history of nicotine dependence; Z80.0 Family history of malignant neoplasm of digestive organs
CPT/HCPCS: 0232T; 36415; 36600; 71045; 71046; 80053; 80069; 81001; 82330; 82435; 82800; 82803; 82810; 82947; 82948; 83036; 83605; 83735; 84100; 84132; 84295; 85018; 85025; 85347; 85384; 85610; 85730; 86885; 86900; 86901; 86920; 87070; 87075; 87102; 88300; 88304; 90935; 93005; 93312; 93325; 93880; 93971; 94002; 94003; 94010; 94760; A6213; A6223; A6255; A6257; A6402; A6446; A6449; A7000; A7048; C1713; C1751; C1768; C9132; J0171; J0690; J1250; J1265; J1644; J1815; J1940; J2001; J2150; J2250; J2370; J2704; J2930; J3010; J3370; J3475; J3480; J3490; J7030; J7120; P9012; P9016; P9035; P9045; P9047; P9059